=== PATIENT | female | born 1980 | race African-American/Black ===

== ENCOUNTER 2023-07-15 10:11 | Emergency (ER) | payer OTHER ==
[2023-07-15] MEDS: KETOROLAC 15 MG/ML 1 ML VIAL IM STA (10:34)
[2023-07-15] MEDS: AMOXIC-POT CLAV 875-125MG 1 EACH TAB PO STA (10:34)
[2023-07-15] MEDS: DEXAMETHASONE SOD PHOSPHATE 10 MG/ML 1 ML VIAL IM STA (10:35)
--- NOTE | 2023-07-15 10:48 | ED ---
ENT HPI - General Chief complaint: ENT Stated complaint: headache,Ear pain Time Seen by Provider: 07/15/23 10:17 Source: patient, RN notes reviewed Mode of arrival: ambulatory Limitations: no limitations - History of Present Illness Initial comments: This is a 42-year-old female who presents to the emergency department for left- sided facial pain, a sore throat, and ear pain. States over the last 3 days she's felt like there is a "marble" in the left side of her face which travels down into the left side of her throat, which is also very painful. Also states that her left ear is increasingly painful. Denies any fevers or chills. Also denies any coughing, congestion, chest pain, or shortness of breath. MD complaint: sore throat, ear pain - Related Data Previous Rx's Medication Instructions Recorded Amoxic-Pot Clav 875-125Mg 1 tab PO Q12HR 10 Days #20 tab 07/15/23 [Augmentin 875-125] Ibuprofen [Motrin] 800 mg PO Q8H PRN #30 tab 07/15/23 Allergies Allergy/AdvReac Type Severity Reaction Status Date / Time No Known Allergies Allergy Verified 07/15/23 10:15 Review of Systems ROS Statement: Those systems with pertinent positive or pertinent negative responses have been documented in the HPI. ROS Other: All systems not noted in ROS Statement are negative. Past Medical History Past Medical History: No Reported History History of Any Multi-Drug Resistant Organisms: None Reported Past Surgical History: Orthopedic Surgery Additional Past Surgical History / Comment(s): D&C Past Psychological History: No Psychological Hx Reported Smoking Status: Current every day smoker Past Alcohol Use History: Occasional Past Drug Use History: Marijuana General Exam Limitations: no limitations General appearance: alert, in no apparent distress Head exam: Present: atraumatic, normocephalic, normal inspection ENT exam: Present: other (Multiple dental caries. Possible dental abscess along the left upper jaw. Left canal erythema without TM erythema. Posterior pharyngeal erythema and 2+ tonsillar hypertrophy.) Respiratory exam: Present: normal lung sounds bilaterally. Absent: respiratory distress, wheezes, rales, rhonchi, stridor Cardiovascular Exam: Present: regular rate, normal rhythm, normal heart sounds. Absent: systolic murmur, diastolic murmur, rubs, gallop, clicks Neurological exam: Present: alert, oriented X3, CN II-XII intact Psychiatric exam: Present: normal affect, normal mood Skin exam: Present: warm, dry, intact, normal color. Absent: rash Course Vital Signs 07/15/23 07/15/23 10:13 12:00 Temperature 98.8 F 98.5 F Pulse Rate 78 63 Respiratory 18 12 Rate Blood Pressure 121/79 115/73 O2 Sat by Pulse 100 97 Oximetry Medical Decision Making - Medical Decision Making This is a 42-year-old female who presents to the emergency department for left ear pain, a sore throat, and left-sided facial pain. Was pt. sent in by a medical professional or institution? @ -No Did you speak to anyone other than the patient for history? @ -No Did you review nursing and triage notes? @ -Yes, and I agree, it is accurate with regards to the patient's symptoms. Were old charts reviewed? @ -No Differential Diagnosis? @ -Differential Sore Throat: Strep pharyngitis, herpes zoster, COVID, influenza, GERD, allergic rhinitis, mononucleosis, this is not meant to be an all-inclusive list. EKG interpreted by me (3pts min.)? @ -Not obtained X-rays interpreted by me (1pt min.)? @ -Not obtained CT interpreted by me (1pt min.)? @ -Not obtained U/S interpreted by me (1pt. min.)? @ -Not obtained What testing was considered but not performed? (CT, X-rays, U/S, labs)? Why? @ -None What meds were considered but not given? Why? @ -None Did you discuss the management of the patient with other professionals? @ -No Did you reconcile home meds? @ -No Was smoking cessation discussed for >3mins.? @ -No Was critical care preformed (if so, how long)? @ -No Were there social determinants of health that impacted care today? How? (Homelessness, low income, unemployed, alcoholism, drug addiction, transportation, low edu. Level, literacy, decrease access to med. care, assisted, rehab)? @ -No Was there de-escalation of care discussed even if they declined? (Discuss DNR or withdrawal of care, Hospice)? @ -No What co-morbidities impacted this encounter? (DM, HTN, Smoking, COPD, CAD, Cancer, CVA, Hep., AIDS, mental health diagnosis, sleep apnea, morbid obesity)? @ -None Was patient admitted / discharged? @ -Discharged. Rapid strep test negative. Physical examination suggestive of an otitis externa and developing dental abscess. She was given a bottle of ciprodex drops in the emergency department to continue using for 7 days. Rx for Augmentin provided with dosing instructions reviewed for the dental abscess. Prescription for ibuprofen provided as well for symptomatic management. Patient discharged home in stable condition. Undiagnosed new problem with uncertain prognosis? @ -None Drug Therapy requiring intensive monitoring for toxicity (Heparin, Nitro, Insulin, Cardizem)? @ -None Were any procedures done? @ -None Diagnosis/symptom? @ -Otitis externa, pharyngitis, dental abscess Acute, or Chronic, or Acute on Chronic? @ -Acute Uncomplicated (without systemic symptoms) or Complicated (systemic symptoms)? @ -Uncomplicated Side effects of treatment? @ -None Exacerbation, Progression, or Severe Exacerbation] @ -Not applicable Poses a threat to life or bodily function? @ -No Return precautions reviewed in depth, the patient is instructed to return to the emergency department with any new, worsening, or concerning symptoms. Patient verbalized understanding. This case was discussed in detail with the attending ED physician, Dr. Thomson. Presentation, findings, and treatment plan discussed in detail as well. - Lab Data Lab Results 07/15/23 Range/Units 10:28 Group A Strep (PCR) NOT DETECTED (Not Detectd) Disposition Clinical Impression: Dental abscess, Otitis externa, Pharyngitis Disposition: HOME SELF-CARE Instructions (If sedation given, give patient instructions): Dental Abscess (ED), Pharyngitis (ED), Swimmer's Ear (ED) Additional Instructions: Return to the emergency department with any new, worsening, or concerning symptoms. Take the antibiotic as prescribed for 10 days. Apply the Ciprodex drops provided as 4 drops to the left ear twice daily for 7 days. Alternate with ibuprofen and Tylenol as needed for pain relief. Follow up with your primary care provider in 1-2 days. Prescriptions: Amoxic-Pot Clav 875-125Mg [Augmentin 875-125] 1 tab PO Q12HR 10 Days #20 tab Ibuprofen [Motrin] 800 mg PO Q8H PRN #30 tab PRN Reason: Pain Is patient prescribed a controlled substance at d/c from ED?: No Referrals: Dixie Augustin MD [Primary Care Provider] - 1-2 days Time of Disposition: 11:45
[2023-07-15] MEDS: CIPROFLOXACIN-DEXAMETH 0.3-0.1% DROPS 7.5 ML BTL LEFT EAR STA (11:03)
[2023-07-15] MEDS: ACET/COD 300 MG/30 MG STARTER PACK 6 TAB BTL PO STA (12:12)
[2023-07-15 12:13] VITALS: BP 115/73; PULSE 63; RESP 12; TEMP 98.5
== END 2023-07-15 12:15 | disposition home or self-care (01) ==
LOC: EC 10:11
DX: K04.7 Periapical abscess without sinus (principal); H60.92 Unspecified otitis externa, left ear; J02.9 Acute pharyngitis, unspecified; F17.200 Nicotine dependence, unspecified, uncomplicated; F12.90 Cannabis use, unspecified, uncomplicated
CPT/HCPCS: 87651; 99284; 96372 ×2; J1100; J1885

== ENCOUNTER → 2024-03-16 | Outpatient (CLI) | payer OTHER ==
--- NOTE | 2024-03-16 15:13 | CT ---
EXAMINATION TYPE: CT soft tissue neck wo/w con CT DLP: 1347 mGycm, Automated exposure control for dose reduction was used. DATE OF EXAM: 03/16/2024 2:45 PM COMPARISON: None. CLINICAL INDICATION: Female, 43 years old with history of M54.10 Radiculopathy; M50.30 DDD; [facility], [employer] harriet neck pain and tingling/numbness in fingers. TECHNIQUE: Standard enhanced CT of the neck. Axial sections with coronal and sagittal reformats were obtained. Contrast used:100ml mL of Isovue 300 without and with IV Contrast, (None if empty) Oral contrast used: (None if empty) FINDINGS: Brain: Visualized portions are grossly unremarkable. Orbits: Unremarkable Sinuses: Grossly unremarkable. Spaces of the neck: Clear and symmetric. Musculoskeletal: No acute osseous pathology. Mild degeneration changes throughout the cervical spine with osteophyte formation and facet and uncovertebral joint arthropathy.. Neural foraminal stenosis w orse at C3-C4 and C4-C5 with mild to moderate left. Lymph nodes: Multiple nonenlarged lymph nodes are seen along both anterior chains of the neck. Vascular structures: Visualized major arteries are patent without evidence of aneurysm. The internal jugular veins are narrowed as they cross between the spine and elongated styloid processes bilaterall y series 6 image 24. Thoracic Inlet/airway: Airway is patent. The lung apices are clear. Soft tissues/Thyroid: Thyroid and remainder of the soft tissues are unremarkable. Other: none. IMPRESSION 1. Slitlike appearance of the bilateral internal jugular veins just below the skull base due to elong ated styloid processes. Correlate for apache syndrome 2. Mild degeneration changes of the spine without evidence for significant spinal canal stenosis. The re is mild to moderate left neural foraminal stenosis at C3-C4 and C4-C5. [facility], Workstation: [id number], 03/16/2024 3:11 PM
== END | disposition home or self-care (01) ==
LOC: RADCTMAIN 14:15
PROVIDERS: ATTEND Family Medicine
CPT/HCPCS: 70492

== ENCOUNTER → 2024-04-01 | Outpatient (CLI) | payer OTHER ==
--- NOTE | 2024-04-08 14:25 | MM ---
Reason for Exam: Screening (asymptomatic). Baseline mammogram. Patient History: Menarche at age 11. First Full-Term at age 22. 10/08/1999, Excisional Biopsy on the Right side. Last menstrual period: 03/29/2024 Risk Values: Bobbi 5 year model risk: 0.8%. NCI Lifetime model risk: 9.6%. Prior Study Comparison: Patient's first Mammogram. Tissue Density: The breasts are heterogeneously dense, which may obscure small masses. Findings: Analyzed By CAD. Asymmetries bilaterally: Upper middle depth on left MLO view. Mild DOS posterior nipple line and left CC. The upper aspect on right MLO view middle depth and the slightly medial aspect middle depth on right cc view. Overall Assessment: Incomplete: need additional imaging evaluation, BI-RAD 0 Management: Diagnostic Mammogram of both breasts. [facility] will attempt to contact patient to return for supplemental views and ultrasound if indicated. Patient should continue monthly self-breast exams. A clinical breast exam by your physician is recommended on an annual basis. This exam should not preclude additional follow-up of suspicious palpable abnormalities. Note on Bobbi scores and lifetime risk: 1. A Bobbi score greater than 3% is considered moderate risk. If this is the case, consider specialist referral to assess eligibility for a risk reducing agent. 2. If overall lifetime risk for the development of breast cancer is 20% or higher, the patient may qualify for future screening with alternating mammogram and breast MRI. [facility], , 04/08/2024 2:22 PM. Electronically signed and approved by: Shawn Recinos DO
== END | disposition home or self-care (01) ==
LOC: RADMAMWWP 15:57
PROVIDERS: ATTEND Family Medicine
DX: Z12.31 Encounter for screening mammogram for malignant neoplasm of breast (principal); R92.333 Mammographic heterogeneous density, bilateral breasts
CPT/HCPCS: 77067

== ENCOUNTER → 2024-04-14 | Outpatient (CLI) | payer OTHER ==
--- NOTE | 2024-04-14 14:25 | MM ---
Reason for Exam: Additional evaluation requested from prior study. Last screening mammogram was performed less than 1 month ago. Patient History: Menarche at age 11. First Full-Term at age 22. 10/08/1999, Excisional Biopsy on the Right side. Risk Values: Bobbi 5 year model risk: 0.8%. NCI Lifetime model risk: 9.6%. Prior Study Comparison: 04/01/2024 Bilateral MG screening mammo w CAD, [facility]. Tissue Density: The breasts are heterogeneously dense, which may obscure small masses. Findings: Analyzed By CAD. Right breast: 1 cm nodular density directly behind the nipple 5 cm from the nipple right breast. Ultrasound is recommended. Left breast: 1 cm nodular density 12:00 position left breast 4 cm from the nipple. Ultrasound recommended. Overall Assessment: Incomplete: need additional imaging evaluation, BI-RAD 0 Management: Diagnostic Breast Ultrasound of both breasts. . Results were given to the patient verbally at the time of exam. Patient should continue monthly self-breast exams. A clinical breast exam by your physician is recommended on an annual basis. This exam should not preclude additional follow-up of suspicious palpable abnormalities. Note on Bobbi scores and lifetime risk: 1. A Bobbi score greater than 3% is considered moderate risk. If this is the case, consider specialist referral to assess eligibility for a risk reducing agent. 2. If overall lifetime risk for the development of breast cancer is 20% or higher, the patient may qualify for future screening with alternating mammogram and breast MRI. [facility], , 04/14/2024 2:17 PM. Electronically signed and approved by: Josh Danielson M.D. Radiologis
--- NOTE | 2024-04-14 14:41 | USB ---
Reason for Exam: Additional evaluation requested from abnormal screening. Patient History: Menarche at age 11. First Full-Term at age 22. 10/08/1999, Excisional Biopsy on the Right side. Risk Values: Bobbi 5 year model risk: 0.8%. NCI Lifetime model risk: 9.6%. Technique: Method: Targeted. Prior Study Comparison: 04/01/2024 Bilateral MG screening mammo w CAD, [facility]. Findings: The upper outer quadrant of the left breast, the upper inner quadrant of the right breast, the axilla of both breasts and the retroareolar of both breasts were scanned. 1 cm simple cysts are noted at the right 2:00 position and left 12:00 position. No solid masses detected. Overall Assessment: Benign, BI-RAD 2 Management: Screening Mammogram of both breasts in 1 year. A clinical breast exam by your physician is recommended on an annual basis and results should be correlated with mammographic findings. This exam should not preclude additional follow-up of suspicious palpable abnormalities. Results were given to the patient verbally at the time of exam. [facility], , 04/14/2024 2:38 PM. Electronically signed and approved by: Josh Danielson M.D. Radiologis
== END | disposition home or self-care (01) ==
LOC: RADMAMWWP 13:53
PROVIDERS: ATTEND Family Medicine
DX: R92.8 Other abnormal and inconclusive findings on diagnostic imaging of breast (principal); R92.333 Mammographic heterogeneous density, bilateral breasts; N63.10 Unspecified lump in the right breast, unspecified quadrant; N60.01 Solitary cyst of right breast
CPT/HCPCS: 77066; 76642; G0279; 77062